=== PATIENT | male | born 1935 ===

== ENCOUNTER 2021-07-20 15:45 | Inpatient (IN) | payer MEDICARE ==
[~2021-07-20] VITALS: Ht 180.3 cm; Wt 80.4 kg
[2021-07-20] MEDS ORDERED: cefTRIAXone 1GM/50ML D5W 50 ML IV ONE (16:30)
[2021-07-20] MEDS ORDERED: AZITHROMYCIN 500MG/ 250ML 250 ML IV ONE (16:30)
[2021-07-20] MEDS ORDERED: methylPREDNISolone SOD SUCC 125 MG/2 ML VL IV ONE (16:30)
[2021-07-20 18:39] LABS: Urine Bacteria FEW /hpf (None Seen); Urine Blood Negative /uL (Negative); Urine Specific Gravity 1.014 (1.001-1.035); Urine WBC 32 /hpf (0 - 3)
[2021-07-20 18:41] LABS: Hemoglobin 11.2 g/dL (13.5-17.5); Mean Corpuscular Hemoglobin 26.9 pg (28.0-32.0); Mean Corpuscular Hgb Conc. 32.8 g/dL (32.0-36.0); Mean Corpuscular Volume 82.1 fL (80.0-100.0); Red Blood Cells 4.14 10^6/uL (4.5-5.90)
[2021-07-20 18:42] LABS: Band Neutrophils % (manual) 0
[2021-07-20 18:43] LABS: Basophils % (manual) 0 (0.0-2.0); Blast Cells 0; Eosinophils % (manual) 0 (0-7); Metamyelocytes % 0; Myelocytes % 0; Promyelocytes % 0; Reactive Lymphocytes 0
[2021-07-20 19:08] LABS: BUN/Creatinine Ratio 22.6; Magnesium 2.2 mg/dL (1.6-2.6); Potassium 4.7 mmol/L (3.5-5.1)
[2021-07-20 19:10] LABS: Bilirubin, Total 1.1 mg/dL (0.2-1.0); Total Protein 6.9 g/dL (6.4-8.2)
[2021-07-20 20:01] LABS: Lymphocytes % (manual) 10 (10.0-50.0); Monocytes % (manual) 3 (0-12)
[2021-07-20] MEDS ORDERED: ONDANSETRON HCL 4 MG/2 ML VIAL IV PRN (21:00)
[2021-07-20] MEDS ORDERED: ACETAMINOPHEN 325 MG TAB PO PRN (21:00)
[2021-07-20] MEDS ORDERED: SODIUM CHLORIDE 0.9% 1,000 ML IV SCH (21:00)
[2021-07-20] MEDS ORDERED: MORPHINE SULFATE INJECTION 2 MG/ML SYRG IV PRN (21:00)
[2021-07-20] MEDS ORDERED: NITROGLYCERIN 0.4 MG SL TAB SL PRN (21:00)
[2021-07-20] MEDS ORDERED: ALBUTEROL SULF 2.5 MG/0.5ML(0.5%) NEB SOLN NEB ONE (23:30)
[2021-07-20] MEDS ORDERED: IPRATROPIUM BROM 0.5 MG/2.5ML INH SOL NEB ONE (23:30)
[2021-07-21 05:11] VITALS: BP 129/75
[2021-07-21] MEDS ORDERED: TOPI50TA53 PO (07:11)
[2021-07-21] MEDS ORDERED: CITA-244 PO (07:11)
[2021-07-21] MEDS ORDERED: GABA300C10 PO (07:11)
[2021-07-21] MEDS ORDERED: TAMS0.4C36 PO (07:11)
[2021-07-21] MEDS ORDERED: METF-370 PO (07:11)
[2021-07-21] MEDS ORDERED: FOLI1TAB6 PO (07:11)
[2021-07-21] MEDS ORDERED: HYDR-4833 PO (07:11)
[2021-07-21] MEDS ORDERED: WARF6TAB21 PO (07:11)
[2021-07-21 08:00] VITALS: BP 103/72
[2021-07-21] MEDS ORDERED: cefTRIAXone 1GM/50ML D5W 50 ML IV SCH (09:00)
[2021-07-21] MEDS: AZITHROMYCIN 500MG/ 250ML 250 ML IV SCH (09:14)
[2021-07-21] MEDS ORDERED: PANTOPRAZOLE 40 MG TAB PO SCH (10:00)
[2021-07-21] MEDS ORDERED: DexAMETHasone SOD PHOS 10MG/1ML VIAL INJ IV SCH (10:00)
[2021-07-21 11:25] LABS: Basophils # (auto) 0 10 ^3/uL (0-0.2); Eosinophils # (auto) 0 10 ^3/uL (0-0.8); Eosinophils % (auto) 0.3 % (0.0-7.0); Hematocrit 32.7 % (41.0-53.0); Hemoglobin 10.4 g/dL (13.5-17.5); Lymphocytes # (auto) 0.3 10 ^3/uL (0.4-5.4); Mean Corpuscular Hemoglobin 26.4 pg (28.0-32.0); Mean Corpuscular Hgb Conc. 31.7 g/dL (32.0-36.0); Mean Corpuscular Volume 83.1 fL (80.0-100.0); Monocytes # (auto) 0.4 10 ^3/uL (0-1.3); Monocytes % (auto) 2.5 % (0.0-12.0); Neutrophils # (auto) 13.5 10 ^3/uL (1.6-8.6); Neutrophils % (auto) 95.2 % (37.0-80.0); Red Blood Cells 3.93 10^6/uL (4.5-5.90); Red Cell Distribution Width 20.4 % (11.8-14.3); White Blood Cell 14.2 10^3/uL (4.4-10.8)
[2021-07-21 11:34] LABS: Albumin 1.7 g/dL (3.4-5.0); Calcium 7.9 mg/dL (8.5-10.1); Potassium 4.5 mmol/L (3.5-5.1)
[2021-07-21 11:38] LABS: BUN/Creatinine Ratio 27.9; Bilirubin, Total 0.6 mg/dL (0.2-1.0); Total Protein 6.5 g/dL (6.4-8.2)
[2021-07-21 12:00] VITALS: BP 127/65
[2021-07-21] MEDS: PIPERACILLIN-TAZOB 2.25GM 50 ML IV SCH ×3 (12:16→23:48)
[2021-07-21 12:34] LABS: Protein, Urine 76.2 mg/dL (0.0-11.9)
[2021-07-21] MEDS: IPRATROPIUM BROM 0.5 MG/2.5ML INH SOL NEB SCH ×2 (13:51→19:59)
[2021-07-21] MEDS: ALBUTEROL SULF 2.5 MG/0.5ML(0.5%) NEB SOLN NEB SCH ×2 (13:51→19:58)
[2021-07-21 16:00] VITALS: BP 120/60
[2021-07-21 16:02] VITALS: BP 127/65
[2021-07-21] MEDS: SODIUM BICARBONATE 50ML VIAL 100 ML in D5W 5% 1,000 ML IV SCH ×2 (17:45→22:45)
[2021-07-21 22:00] VITALS: BP 118/71
[2021-07-22] MEDS: ALBUTEROL SULF 2.5 MG/0.5ML(0.5%) NEB SOLN NEB SCH ×4 (01:08→19:17)
[2021-07-22] MEDS: ACETYLCYSTEINE 20%(200MG/ML) SOL 4ML NEB SCH ×4 (01:08→19:17)
[2021-07-22] MEDS: IPRATROPIUM BROM 0.5 MG/2.5ML INH SOL NEB SCH ×4 (01:08→19:17)
[2021-07-22 05:00] VITALS: BP 106/52
[2021-07-22 06:13] LABS: Basophils # (auto) 0 10 ^3/uL (0-0.2); Eosinophils # (auto) 0 10 ^3/uL (0-0.8)
[2021-07-22 06:15] LABS: Basophils % (auto) 0.3 % (0.0-2.0); Hematocrit 27.6 % (41.0-53.0); Hemoglobin 9.1 g/dL (13.5-17.5); Lymphocytes # (auto) 0.3 10 ^3/uL (0.4-5.4); Lymphocytes % (auto) 2.1 % (10.0-50.0); Mean Corpuscular Hemoglobin 26.2 pg (28.0-32.0); Mean Corpuscular Hgb Conc. 32.8 g/dL (32.0-36.0); Mean Corpuscular Volume 79.9 fL (80.0-100.0); Monocytes # (auto) 0.8 10 ^3/uL (0-1.3); Monocytes % (auto) 5.1 % (0.0-12.0); Neutrophils # (auto) 13.9 10 ^3/uL (1.6-8.6); Neutrophils % (auto) 92.5 % (37.0-80.0); Red Blood Cells 3.46 10^6/uL (4.5-5.90); White Blood Cell 15.1 10^3/uL (4.4-10.8)
[2021-07-22] MEDS: PIPERACILLIN-TAZOB 2.25GM 50 ML IV SCH ×4 (06:15→23:38)
[2021-07-22 08:49] LABS: Albumin 1.6 g/dL (3.4-5.0); Calcium 7.7 mg/dL (8.5-10.1); Potassium 3.7 mmol/L (3.5-5.1)
[2021-07-22 08:52] LABS: BUN/Creatinine Ratio 32.8; Bilirubin, Total 0.4 mg/dL (0.2-1.0); Total Protein 5.9 g/dL (6.4-8.2)
[2021-07-22 08:56] VITALS: BP 117/80
[2021-07-22] MEDS: SODIUM BICARBONATE 50ML VIAL 100 ML in D5W 5% 1,000 ML IV SCH ×2 (09:34→16:05)
[2021-07-22] MEDS: AZITHROMYCIN 500MG/ 250ML 250 ML IV SCH (10:30)
[2021-07-22] MEDS: ENOXAPARIN SOD 80 MG/0.8ML SYRINGE SC SCH (11:56)
[2021-07-22 12:44] VITALS: BP 116/54
[2021-07-22] MEDS ORDERED: SODIUM BICARBONATE 50ML VIAL 75 ML in D5W 5% 1,000 ML IV SCH (14:00)
[2021-07-22 16:41] VITALS: BP 122/60
[2021-07-22 22:00] VITALS: BP 130/58
[2021-07-23] MEDS: ALBUTEROL SULF 2.5 MG/0.5ML(0.5%) NEB SOLN NEB SCH ×4 (00:40→19:13)
[2021-07-23] MEDS: IPRATROPIUM BROM 0.5 MG/2.5ML INH SOL NEB SCH ×4 (00:40→19:13)
[2021-07-23 05:00] VITALS: BP 132/68
[2021-07-23] MEDS: SODIUM BICARBONATE 50ML VIAL 100 ML in D5W 5% 1,000 ML IV SCH ×2 (05:26→21:00)
[2021-07-23] MEDS: PIPERACILLIN-TAZOB 2.25GM 50 ML IV SCH ×3 (05:27→17:45)
[2021-07-23 06:05] LABS: Eosinophils # (auto) 0 10 ^3/uL (0-0.8); Hemoglobin 8.9 g/dL (13.5-17.5); Monocytes # (auto) 0.8 10 ^3/uL (0-1.3); Nucleated Red Blood Cells % 0.1 %; White Blood Cell 13.7 10^3/uL (4.4-10.8)
[2021-07-23 06:10] LABS: Basophils # (auto) 0.1 10 ^3/uL (0-0.2); Basophils % (auto) 0.5 % (0.0-2.0); Eosinophils % (auto) 0.1 % (0.0-7.0); Hematocrit 26.3 % (41.0-53.0); Lymphocytes % (auto) 7.7 % (10.0-50.0); Mean Corpuscular Hgb Conc. 33.8 g/dL (32.0-36.0); Mean Corpuscular Volume 79.9 fL (80.0-100.0); Monocytes % (auto) 5.7 % (0.0-12.0); Neutrophils # (auto) 11.7 10 ^3/uL (1.6-8.6); Red Blood Cells 3.28 10^6/uL (4.5-5.90); Red Cell Distribution Width 19.9 % (11.8-14.3)
[2021-07-23 06:25] LABS: BUN/Creatinine Ratio 33.3; Calcium 6.9 mg/dL (8.5-10.1); Potassium 4.1 mmol/L (3.5-5.1)
[2021-07-23 09:00] VITALS: BP 128/68
[2021-07-23] MEDS: ACETYLCYSTEINE 20%(200MG/ML) SOL 4ML NEB SCH ×3 (09:08→19:13)
[2021-07-23] MEDS: AZITHROMYCIN 500MG/ 250ML 250 ML IV SCH (09:42)
[2021-07-23] MEDS: ENOXAPARIN SOD 80 MG/0.8ML SYRINGE SC SCH (09:42)
[2021-07-23 13:00] VITALS: BP 122/72
[2021-07-23 16:44] VITALS: BP 132/62
[2021-07-23 20:00] VITALS: BP 140/75
[2021-07-23 22:00] VITALS: BP 140/75
[2021-07-24] VITALS (7 sets, daily range): BP systolic 125–155; BP diastolic 69–89
[2021-07-24] MEDS: PIPERACILLIN-TAZOB 2.25GM 50 ML IV SCH ×5 (00:11→23:44)
[2021-07-24] MEDS: ALBUTEROL SULF 2.5 MG/0.5ML(0.5%) NEB SOLN NEB SCH ×4 (01:09→18:46)
[2021-07-24] MEDS: IPRATROPIUM BROM 0.5 MG/2.5ML INH SOL NEB SCH ×4 (01:09→18:46)
[2021-07-24 05:56] LABS: Basophils # (auto) 0 10 ^3/uL (0-0.2); Basophils % (auto) 0.5 % (0.0-2.0); Eosinophils # (auto) 0.1 10 ^3/uL (0-0.8); Hemoglobin 10.4 g/dL (13.5-17.5); Monocytes # (auto) 0.7 10 ^3/uL (0-1.3)
[2021-07-24 05:59] LABS: Eosinophils % (auto) 1.4 % (0.0-7.0); Hematocrit 31.7 % (41.0-53.0); Lymphocytes % (auto) 12.9 % (10.0-50.0); Mean Corpuscular Hgb Conc. 32.9 g/dL (32.0-36.0); Mean Corpuscular Volume 81.9 fL (80.0-100.0); Monocytes % (auto) 9.5 % (0.0-12.0); Neutrophils # (auto) 5.8 10 ^3/uL (1.6-8.6); Neutrophils % (auto) 75.7 % (37.0-80.0); Red Blood Cells 3.87 10^6/uL (4.5-5.90); White Blood Cell 7.7 10^3/uL (4.4-10.8)
[2021-07-24 06:18] LABS: Red Cell Distribution Width 20.1 % (11.8-14.3)
[2021-07-24 06:19] LABS: Potassium 4.1 mmol/L (3.5-5.1)
[2021-07-24 06:27] LABS: Albumin 1.7 g/dL (3.4-5.0); BUN/Creatinine Ratio 28.6; Bilirubin, Total 0.7 mg/dL (0.2-1.0); Calcium 6.8 mg/dL (8.5-10.1); Magnesium 2.3 mg/dL (1.6-2.6); Phosphorus 3.2 mg/dL (2.5-4.90)
[2021-07-24] MEDS: ACETYLCYSTEINE 20%(200MG/ML) SOL 4ML NEB SCH ×2 (07:31→18:50)
[2021-07-24] MEDS: ENOXAPARIN SOD 80 MG/0.8ML SYRINGE SC SCH (10:40)
[2021-07-24] MEDS: SODIUM BICARBONATE 50ML VIAL 100 ML in D5W 5% 1,000 ML IV SCH (10:41)
[2021-07-25 04:30] VITALS: BP 140/93
[2021-07-25] MEDS: PIPERACILLIN-TAZOB 2.25GM 50 ML IV SCH ×3 (06:09→18:07)
[2021-07-25] MEDS: IPRATROPIUM BROM 0.5 MG/2.5ML INH SOL NEB SCH ×3 (06:58→22:04)
[2021-07-25] MEDS: ACETYLCYSTEINE 20%(200MG/ML) SOL 4ML NEB SCH ×3 (06:59→22:04)
[2021-07-25] MEDS: ALBUTEROL SULF 2.5 MG/0.5ML(0.5%) NEB SOLN NEB SCH ×3 (06:59→22:04)
[2021-07-25 07:16] LABS: Potassium 4.1 mmol/L (3.5-5.1)
[2021-07-25 07:37] LABS: BUN/Creatinine Ratio 20.2; Calcium 7.2 mg/dL (8.5-10.1)
[2021-07-25 08:00] VITALS: BP 126/72
[2021-07-25 09:00] VITALS: BP 142/67
[2021-07-25] MEDS: ENOXAPARIN SOD 80 MG/0.8ML SYRINGE SC SCH (11:06)
[2021-07-25 12:58] VITALS: BP 147/87
[2021-07-25 17:00] VITALS: BP 155/78
[2021-07-25 22:00] VITALS: BP 114/62
[2021-07-26] MEDS: PIPERACILLIN-TAZOB 2.25GM 50 ML IV SCH ×4 (00:12→17:50)
[2021-07-26 01:19] VITALS: BP 114/62
[2021-07-26 05:00] VITALS: BP 164/86
[2021-07-26] MEDS: ACETYLCYSTEINE 20%(200MG/ML) SOL 4ML NEB SCH ×3 (07:40→22:33)
[2021-07-26] MEDS: IPRATROPIUM BROM 0.5 MG/2.5ML INH SOL NEB SCH ×3 (07:40→22:33)
[2021-07-26] MEDS: ALBUTEROL SULF 2.5 MG/0.5ML(0.5%) NEB SOLN NEB SCH ×3 (07:40→22:34)
[2021-07-26] MEDS: ENOXAPARIN SOD 80 MG/0.8ML SYRINGE SC SCH (08:55)
[2021-07-26 09:00] VITALS: BP 135/82
[2021-07-26 13:00] VITALS: BP 119/71
[2021-07-26 17:00] VITALS: BP 141/71
[2021-07-26 22:00] VITALS: BP 138/89
[2021-07-27] MEDS: PIPERACILLIN-TAZOB 2.25GM 50 ML IV SCH ×4 (00:08→18:27)
[2021-07-27 05:00] VITALS: BP 127/67
[2021-07-27 05:56] LABS: Basophils # (auto) 0 10 ^3/uL (0-0.2); Basophils % (auto) 0.3 % (0.0-2.0); Eosinophils # (auto) 0.3 10 ^3/uL (0-0.8); Eosinophils % (auto) 2.3 % (0.0-7.0); Hematocrit 36.8 % (41.0-53.0); Lymphocytes # (auto) 1.1 10 ^3/uL (0.4-5.4); Lymphocytes % (auto) 9.6 % (10.0-50.0); Mean Corpuscular Hemoglobin 27.1 pg (28.0-32.0); Mean Corpuscular Hgb Conc. 32.7 g/dL (32.0-36.0); Monocytes % (auto) 8.3 % (0.0-12.0); Neutrophils # (auto) 9.1 10 ^3/uL (1.6-8.6); Neutrophils % (auto) 79.5 % (37.0-80.0); Red Blood Cells 4.43 10^6/uL (4.5-5.90); Red Cell Distribution Width 19.6 % (11.8-14.3); White Blood Cell 11.5 10^3/uL (4.4-10.8)
[2021-07-27] MEDS: ACETYLCYSTEINE 20%(200MG/ML) SOL 4ML NEB SCH ×3 (06:13→22:29)
[2021-07-27] MEDS: ALBUTEROL SULF 2.5 MG/0.5ML(0.5%) NEB SOLN NEB SCH ×3 (06:13→22:29)
[2021-07-27] MEDS: IPRATROPIUM BROM 0.5 MG/2.5ML INH SOL NEB SCH ×3 (06:13→22:29)
[2021-07-27 06:15] LABS: BUN/Creatinine Ratio 17.6; Magnesium 1.8 mg/dL (1.6-2.6); Potassium 4.7 mmol/L (3.5-5.1)
[2021-07-27 08:00] VITALS: BP 113/59
[2021-07-27] MEDS: ENOXAPARIN SOD 80 MG/0.8ML SYRINGE SC SCH (10:19)
[2021-07-27 13:00] VITALS: BP 131/59
[2021-07-27] MEDS ORDERED: MAGNESIUM OXIDE 400 MG TAB PO ONE (14:00)
[2021-07-27] MEDS ORDERED: METOPROLOL TARTRATE 25 MG TAB PO ONE (14:45)
[2021-07-27 16:00] VITALS: BP 110/62
[2021-07-27 22:00] VITALS: BP 99/66
[2021-07-28] MEDS: PIPERACILLIN-TAZOB 2.25GM 50 ML IV SCH ×3 (00:30→12:01)
[2021-07-28 05:00] VITALS: BP 104/57
[2021-07-28 05:35] VITALS: BP 104/57
[2021-07-28 07:04] LABS: Basophils # (auto) 0 10 ^3/uL (0-0.2); Basophils % (auto) 0.5 % (0.0-2.0); Eosinophils # (auto) 0.2 10 ^3/uL (0-0.8); Eosinophils % (auto) 2.4 % (0.0-7.0); Hematocrit 35.2 % (41.0-53.0); Hemoglobin 11.3 g/dL (13.5-17.5); Lymphocytes # (auto) 0.9 10 ^3/uL (0.4-5.4); Lymphocytes % (auto) 11.1 % (10.0-50.0); Mean Corpuscular Hemoglobin 26.2 pg (28.0-32.0); Mean Corpuscular Volume 81.6 fL (80.0-100.0); Monocytes # (auto) 0.8 10 ^3/uL (0-1.3); Monocytes % (auto) 9.4 % (0.0-12.0); Neutrophils # (auto) 6.2 10 ^3/uL (1.6-8.6); Neutrophils % (auto) 76.6 % (37.0-80.0); Nucleated Red Blood Cells % 0.2 %; Red Blood Cells 4.31 10^6/uL (4.5-5.90); Red Cell Distribution Width 19.7 % (11.8-14.3); White Blood Cell 8.1 10^3/uL (4.4-10.8)
[2021-07-28] MEDS: ACETYLCYSTEINE 20%(200MG/ML) SOL 4ML NEB SCH ×2 (07:04→14:28)
[2021-07-28] MEDS: ALBUTEROL SULF 2.5 MG/0.5ML(0.5%) NEB SOLN NEB SCH ×2 (07:04→14:29)
[2021-07-28] MEDS: IPRATROPIUM BROM 0.5 MG/2.5ML INH SOL NEB SCH ×2 (07:04→14:29)
[2021-07-28 07:09] LABS: Calcium 7.9 mg/dL (8.5-10.1); Magnesium 2.1 mg/dL (1.6-2.6); Potassium 4.4 mmol/L (3.5-5.1)
[2021-07-28 07:11] LABS: BUN/Creatinine Ratio 16.9; Phosphorus 2.9 mg/dL (2.5-4.90)
[2021-07-28 08:00] VITALS: BP 111/57
[2021-07-28] MEDS: ENOXAPARIN SOD 80 MG/0.8ML SYRINGE SC SCH (10:24)
[2021-07-28] MEDS ORDERED: METO25TA93 PO (11:02)
[2021-07-28] MEDS ORDERED: APIX2.5T PO (11:02)
[2021-07-28 12:00] VITALS: BP 116/67
[2021-07-28 12:54] LABS: Folate (Folic Acid) 22.94 ng/mL (5.38-24)
[2021-07-28 16:00] VITALS: BP 102/63
[2021-07-28 16:21] VITALS: BP 116/67
== END 2021-07-28 17:55 | disposition hospice, home (50) | DRG 871 ==
LOC: EDBD 15:45 → ER 15:45 → TELE 21:02 → TELE-WESTW 07-21 05:11 → WEST WING 07-27 14:09 → TELE-WESTW 07-27 14:39 → WEST WING 07-28 00:28 → TELE-WESTW 07-28 08:12
PROVIDERS: ADMIT Nurse Practitioner; ATTEND Internal Medicine
PROC: 05HB33Z Insertion of Infusion Device into Right Basilic Vein, Percutaneous Approach (ICD-10-PCS; 2021-07-22)
PROC: B54MZZA Ultrasonography of Right Upper Extremity Veins, Guidance (ICD-10-PCS; 2021-07-22)
PROC: B54NZZA Ultrasonography of Left Upper Extremity Veins, Guidance (ICD-10-PCS; principal; 2021-07-23)
PROC: 05HA33Z Insertion of Infusion Device into Left Brachial Vein, Percutaneous Approach (ICD-10-PCS; 2021-07-23)
DX: A41.9 Sepsis, unspecified organism (principal); J69.0 Pneumonitis due to inhalation of food and vomit; E43 Unspecified severe protein-calorie malnutrition; J96.01 Acute respiratory failure with hypoxia; I26.99 Other pulmonary embolism without acute cor pulmonale; N39.0 Urinary tract infection, site not specified; N17.9 Acute kidney failure, unspecified; Z20.822 Contact with and (suspected) exposure to COVID-19; N18.30 Chronic kidney disease, stage 3 unspecified; D64.9 Anemia, unspecified; I12.9 Hypertensive chronic kidney disease with stage 1 through stage 4 chronic kidney disease, or unspecified chronic kidney disease; F03.90 Unspecified dementia, unspecified severity, without behavioral disturbance, psychotic disturbance, mood disturbance, and anxiety; I48.91 Unspecified atrial fibrillation; Z68.25 Body mass index [BMI] 25.0-25.9, adult; Z85.46 Personal history of malignant neoplasm of prostate
CPT/HCPCS: 36415; 36600; 71045; 71250; 74176; 76775; 78582; 80048; 80053; 81001; 82306; 82570; 82607; 82728; 82746; 82805; 83605; 83735; 83880; 83935; 84100; 84154; 84156; 84300; 84439; 84443; 84484; 85007; 85025; 85027; 85379; 87040; 87070; 87077; 87205; 87426; 92610; 93005; 93306; 93970; 94640; 96365; 96366; 96368; 96375; 97110; 97116; 97163; 97530; G0378; J0696; J1100; J2543